=== PATIENT | female | born 1980 | race Caucasian/White ===

== ENCOUNTER 2018-12-10 05:27 | Day surgery (SDC) | payer OTHER ==
[2018-12-08 12:43] VITALS: BMI 37.8
[2018-12-10] VITALS (14 sets, daily range): BP systolic 103–138; BP diastolic 62–78; PULSE 80–88; RESP 17–26; Ht 149.9 cm; Wt 90.2 kg
[~2018-12-10] VITALS: Ht 149.9 cm; Wt 90.2 kg
[~2018-12-10 05:27] MED LIST: CETI10CA PO; OMEP20CA16 PO; ONDA4TAB8 PO; POLYMYXIN/BACITRACIN 1L IRRIG IRR ONE; POTA10TA6 PO; RANI75TA13 PO
[2018-12-10] MEDS ORDERED: CEFAZOLIN 2 GM/50 ML (PMX) 50 ML IVPB SCH (06:30)
[2018-12-10] MEDS ORDERED: SOD CHLORIDE 0.9% 1,000 ML IV SCH (06:30)
--- NOTE | 2018-12-10 07:14 | PREAC ---
Date/Time of Note Date/Time of Note DATE: 12/10/18 TIME: 07:12 Anesthesia Eval and Record Evaluation Time Pre-Procedure Interview DATE: 12/10/18 TIME: 07:12 Age 38 Sex female NPO: 8 hrs Preoperative diagnosis incarcerated recurrent incisional hernia Planned procedure lap incarcerated recurrent incisional hernia repair with mesh Past Medical History Past Medical History: Includes GI: GERD, Morbid obesity Surgery & Anesthesia Issues No known issue Meds Anticoagulation: No Beta Dexter within 24 hr: No Reason Beta Dexter not given: Pt. not on B-Dexter Reported Medications Ondansetron Hcl* (Zofran*) 4 Mg Tablet, 4 MG PO Q6H PRN for NAUSEA AND OR VOMITING, TAB 12/08/18 Potassium Citrate* (Urocit-K*) 10 Meq Tablet.sa, 10 MEQ PO BID, TAB.SA 12/08/18 Omeprazole* (Omeprazole*) 20 Mg Capsule.dr, 20 MG PO DAILY, #30 CAP 12/08/18 Cetirizine Hcl* (Zyrtec*) 10 Mg Capsule, 10 MG PO BID, TAB 12/08/18 Ranitidine Hcl* (Zantac*) 75 Mg Tablet, 150 MG PO PRN for GASTROINTESTINAL UPSET 12/23/13 Discontinued Scripts Docusate Sodium* (Colace*) 100 Mg Capsule, 100 MG PO DAILY, #30 CAP Prov:HECTOR PULLIAM NP 09/02/15 Phenylephrine HCl/[place] Butter* (Preparation H* Suppository) 1 Each Supp.rect, 1 EACH ID TID PRN for bowel movement, #30 SUPP.RECT Prov:HECTOR PULLIAM NP 09/02/15 Psyllium Seed* (Metamucil* Powder) 1,040 Gm Powder, 10 GM PO DAILY, #1 EA Prov:HECTOR PULLIAM LUMBER SORTER 09/02/15 Current Medications Cefazolin Sodium/ Dextrose 50 ml @ 100 mls/hr PREOP IVPB ; Start 12/10/18 at 06:30; Stop 12/10/18 at 20:00 Sodium Chloride 1,000 ml @ 75 mls/hr [id number] IV ; Start 12/10/18 at 06:30; Stop 12/10/18 at 20:00 Meds reviewed: Yes Allergies Coded Allergies: moxifloxacin (Verified Allergy, Severe, 12/10/18) DIFFICULTY BREATHING latex (Verified Allergy, Intermediate, RASH/ REDNESS, 12/10/18) Allergies Reviewed: Yes Labs/Studies Labs Reviewed: Reviewed by anesthesiologist Result Diagram: 12/10/1815 12/10/18 0615 Laboratory Tests 12/10/18 06:15 test: Negative Studies: ECG (nl) Pre-procedure Exam Last vitals Vital Signs Date Temp Pulse Resp B/P (MAP) Pulse Ox O2 O2 Flow FiO2 Time Delivery Rate 12/10/18 96.8 80 18 119/73 95 Room Air 06:00 (88) Airway: Adequate mouth opening, Adequate thyromental dist Mallampati: Mallampati III Teeth: Normal Lung: Normal Heart: Normal ASA Physical Status ASA physical status: 3 Emergency: None Planned Anesthetic General/MAC: ETT Nerve block: TAP (bilateral) Planned Pain Management Single shot nerve block, Parenteral pain med Pre-operative Attestations Prior to commencing anesthesia and surgery, the patient was re-evaluated, there was verification of: *The patient's identity *The results of appropriate recent lab work and preoperative vital signs *The above evaluation not changing prior to induction *Anesthetic plan, risk benefits, alternative and complications discussed with patient/family; questions answered; patient/family understands, accepts and wishes to proceed. Jose Bautista M.D. Dec 10, 2018 07:14
[2018-12-10] MEDS ORDERED: IPRATROPIUM (NEB) 0.5 MG/2.5 ML AMP HHN PRN (07:30)
[2018-12-10] MEDS ORDERED: MEPERIDINE 25 MG INJ IV PRN (07:30)
[2018-12-10] MEDS ORDERED: MIDAZOLAM 1 MG/ML 2 ML INJ IV PRN (07:30)
[2018-12-10] MEDS ORDERED: ALBUTEROL 0.083% (NEB) 2.5 MG/3 ML AMP HHN PRN (07:30)
[2018-12-10] MEDS ORDERED: ONDANSETRON 4 MG INJ IV PRN (07:30)
[2018-12-10] MEDS ORDERED: LABETALOL HCL 20MG INJ IV PRN (07:30)
[2018-12-10] MEDS ORDERED: EPHEDrine SULFATE 50 MG/5 ML SYG IV PRN (07:30)
[2018-12-10] MEDS ORDERED: DIPHENHYDRAMINE 50 MG INJ IV PRN (07:30)
[2018-12-10] MEDS ORDERED: hydrALAzine 20 MG INJ IV PRN (07:30)
[2018-12-10] MEDS ORDERED: OXYCODONE/ACETAMINOPHEN (5/325) TAB PO PRN ×2 (07:30)
[2018-12-10] MEDS ORDERED: FENTAnyl 50 MCG/ML VIAL IV PRN ×3 (07:30)
[2018-12-10] MEDS ORDERED: HYDROmorphONE 1 MG/5 ML IV SYRINGE IV PRN ×2 (07:30)
[2018-12-10] MEDS ORDERED: TRIMETHOBENZAMIDE 100 MG/ML VIAL IM PRN (07:30)
[2018-12-10] MEDS ORDERED: PROPOFOL 20 ML ONE (07:33)
[2018-12-10] MEDS ORDERED: ROCURONIUM 50 MG INJ ONE (07:33)
[2018-12-10] MEDS ORDERED: NEOSTIGMINE 3 MG/3 ML SYRINGE ONE (07:33)
[2018-12-10] MEDS ORDERED: GLYCOPYRROLATE 0.4 MG INJ ONE (07:33)
[2018-12-10] MEDS ORDERED: CEFAZOLIN 1 GM INJ ONE (07:33)
[2018-12-10] MEDS ORDERED: FENTAnyl 50 MCG/ML VIAL ONE (07:35)
[2018-12-10] MEDS ORDERED: ONDANSETRON 4 MG INJ ONE (07:35)
[2018-12-10] MEDS ORDERED: MIDAZOLAM 1 MG/ML 2 ML INJ ONE (07:35)
[2018-12-10] MEDS ORDERED: DEXAMETHASONE 4 MG/ML 5 ML INJ ONE (07:36)
[2018-12-10] MEDS ORDERED: ROPIVACAINE 0.5 % 30 ML VIAL ONE (08:06)
[2018-12-10] MEDS ORDERED: SUGAMMADEX SODIUM 200 MG/2 ML VIAL IV ONE (08:52)
--- NOTE | 2018-12-10 09:18 | OPR ---
Date/Time of Note Date/Time of Note DATE: 12/10/18 TIME: 09:11 Operative Report Procedure Date: Dec 10, 2018 Preoperative Diagnosis recurrent incarcerated incisional hernia Postoperative Diagnosis same Operation/Procedure Performed 1. laparoscopic recurrent incarcerated incisional hernia repair 2. implantation of bard soft 15 x 15 cm mesh 3. laparoscopic lysis of adhesions Surgeon see signature line Administrative Services Assistant none Anesthesia Type: general Estimated Blood Loss: 0 - 10 ml's Transfusion none Specimen none Grafts/Implants none Complications none Pt Condition Post Procedure: stable Indications This is a 38-year-old female with symptomatic recurrent incarcerated incisional hernia. She has had surgery before. She required surgical repair. Risks alternatives benefits and percent were discussed the patient. Patient expressed understanding consents to the operation. Procedure Description Patient is taken to the OR and prepped and draped in usual sterile fashion. Surgical time was performed. IV antibiotics were given. Left upper quadrant 5 mm transverse incisions with a 15 blade. Using a 5 mm optical trocar optical entry is performed. Pneumoperitoneum is established. Left flank 12 mm optical trochars placed under direct position. Left lower quadrant 5 mm optical trocha rs placed under direct visualization. Upon initial inspection there is incarcerated hernia contents to the mid epigastric region from the prior surgical site. It appears that this had been repaired primarily without mesh. Laparoscopic lysis of adhesions was performed and the incarcerated contents are manually reduced. The fascial edges were identified. The fascial edges were t hen primarily closed using #1 Vicryl using Endo Close and laparoscopic techniques. After primary closure of the defect underlay mesh with Bard soft mesh is secured in place with secure strap. Approximately 4-5 cm of coverage in all directions were ensured. Good hemostasis established. All ports removed under direct visualization. Skin was closed and skin rea. A tap block was provided by the anesthesiologist the beginning of the case. Dry dressings were applied. Ainsley GRANT Dec 10, 2018 09:18
[2018-12-10] MEDS: HYDROmorphONE 1 MG/5 ML IV SYRINGE IV PRN ×2 (09:20→09:40)
[2018-12-10] MEDS ORDERED: HYDROCODONE/APAP (5/325) TAB PO ONE (09:30)
--- NOTE | 2018-12-10 09:57 | PAC ---
Date/Time of Note Date/Time of Note DATE: 12/10/18 TIME: 09:57 Post-Anesthesia Notes Post-Anesthesia Note Last documented vital signs Vital Signs Date Temp Pulse Resp B/P (MAP) Pulse Ox O2 O2 Flow FiO2 Time Delivery Rate 12/10/18 96.8 80 18 119/73 95 Room Air 06:00 (88) Activity: WNL Respiratory function: WNL Cardiovascular function: WNL Mental status: Baseline Pain reasonably controlled: Yes Hydration appropriate: Yes Nausea/Vomiting absent: Yes Jose Bautista M.D. Dec 10, 2018 09:57
== END 2018-12-10 11:00 | disposition home or self-care (01) ==
LOC: SDS 05:27
PROVIDERS: ATTEND Surgery
DX: K43.0 Incisional hernia with obstruction, without gangrene (principal)
CPT/HCPCS: 49657; 71045; 80053; 85025; 85610; 85730; 93005; J0690; J1100; J1170; J2175; J2250; J2405; J2795; J3010; Z7512; Z7610; J2710

== ENCOUNTER 2019-01-21 11:27 | Day surgery (SDC) | payer OTHER ==
[~2019-01-21] VITALS: Ht 149.9 cm; Wt 88.4 kg
[~2019-01-21 11:27] MED LIST changes: -POLYMYXIN/BACITRACIN 1L IRRIG IRR ONE
[2019-01-21 12:19] VITALS: Ht 149.9 cm; Wt 88.4 kg
[2019-01-21] MEDS ORDERED: IBUPROFEN (12:23)
[2019-01-21 12:34] VITALS: BP 114/68; PULSE 81; RESP 18
--- NOTE | 2019-01-21 12:58 | PREAC ---
Date/Time of Note Date/Time of Note DATE: 01/21/19 TIME: 12:57 Anesthesia Eval and Record Evaluation Time Pre-Procedure Interview DATE: 01/21/19 TIME: 12:57 Age 38 Sex female NPO: 8 hrs Preoperative diagnosis abd pain Planned procedure EGD Past Medical History Past Medical History: Includes Pulm: Asthma Surgery & Anesthesia Issues No known issue Meds Anticoagulation: No Beta Dexter within 24 hr: No Reason Beta Dexter not given: Pt. not on B-Dexter Reported Medications [Ibuprofen] No Conflict Check 01/21/19 Omeprazole* (Omeprazole*) 20 Mg Capsule.dr, 20 MG PO DAILY, #30 CAP 12/08/18 Ranitidine Hcl* (Zantac*) 75 Mg Tablet, 150 MG PO PRN for GASTROINTESTINAL UPSET 12/23/13 Discontinued Reported Medications Ondansetron Hcl* (Zofran*) 4 Mg Tablet, 4 MG PO Q6H PRN for NAUSEA AND OR VOMITING, TAB 12/08/18 Potassium Citrate* (Urocit-K*) 10 Meq Tablet.sa, 10 MEQ PO BID, TAB.SA 12/08/18 Cetirizine Hcl* (Zyrtec*) 10 Mg Capsule, 10 MG PO BID, TAB 12/08/18 Meds reviewed: Yes Allergies Coded Allergies: moxifloxacin (Verified Allergy, Severe, 12/10/18) DIFFICULTY BREATHING latex (Verified Allergy, Intermediate, RASH/ REDNESS, 12/10/18) Allergies Reviewed: Yes Labs/Studies Labs Reviewed: Reviewed by anesthesiologist test: Negative Studies: ECG (n/a), CXR (n/a) Pre-procedure Exam Last vitals Vital Signs Date Temp Pulse Resp B/P (MAP) Pulse Ox O2 O2 Flow FiO2 Time Delivery Rate 01/21/19 98.0 81 18 114/68 97 Room Air 12:34 (83) Airway: Adequate mouth opening Mallampati: Mallampati I Teeth: Normal Lung: Normal Heart: Normal ASA Physical Status ASA physical status: 2 Emergency: None Planned Anesthetic General/MAC: MAC Planned Pain Management Parenteral pain med Pre-operative Attestations Prior to commencing anesthesia and surgery, the patient was re-evaluated, there was verification of: *The patient's identity *The results of appropriate recent lab work and preoperative vital signs *The above evaluation not changing prior to induction *Anesthetic plan, risk benefits, alternative and complications discussed with patient/family; questions answered; patient/family understands, accepts and wishes to proceed. JEAN-PAUL TORRES MD January 21, 2019 12:58
[2019-01-21] MEDS ORDERED: PROPOFOL 20 ML ONE (12:59)
[2019-01-21] MEDS ORDERED: FENTAnyl 50 MCG/ML VIAL ONE (12:59)
[2019-01-21] MEDS ORDERED: ONDANSETRON 4 MG INJ IV PRN (13:00)
[2019-01-21] MEDS ORDERED: FENTAnyl 50 MCG/ML VIAL IV PRN (13:00)
[2019-01-21] MEDS ORDERED: ONDANSETRON 4 MG INJ ONE (13:15)
--- NOTE | 2019-01-22 06:14 | CONS ---
DATE OF ADMISSION: 01/21/2019 DATE OF CONSULTATION: PATIENT NAME: SERG PALMER TYPE OF CONSULTATION: PREOPERATIVE GASTROENTEROLOGY Dear Dr. Galvan: I thank you very much for this kind referral. HISTORY OF PRESENT ILLNESS: Ms. Samra Palmer is a 38-year-old female patient who has been referr ed to me for further evaluation of upper abdominal pain and chronic heartburn not completely respondi ng to therapy with omeprazole and Zantac. At times, the pain is severe. [facility] done and no abnormality was detected. She is not taking an y nonsteroidal anti-inflammatory agents. Appetite is good, and there is no weight loss. She is stat us post cholecystectomy. No history of liver disease. She denies any change in the bowel habit or r ectal bleeding. She is not a hypertensive or diabetic. No heart disease, lung problem or kidney dis ease. She is status post appendectomy. She recently had surgery for umbilical hernia. SOCIAL HISTORY: Nonsmoker. No alcohol abuse. FAMILY HISTORY: No family history of gastrointestinal tract neoplasm. ALLERGIES: NO DRUG ALLERGIES. MEDICATIONS: 1. Omeprazole. 2. Zantac. PHYSICAL EXAMINATION: VITAL SIGNS: She is 4 feet 11 inches tall and weighs 187 pounds. HEART: Normal heart sounds. LUNGS: Clear. ABDOMEN: Soft, no masses. Normal bowel sounds. NEUROLOGIC: Normal neurological exam. IMPRESSION: 1. Upper abdominal pain and chronic heartburn, not responding to therapy with omeprazole and Zantac. 2. Obesity. 3. Status post cholecystectomy and appendectomy. 4. Status post surgery for umbilical hernia recently. PLAN: 1. Endoscopy for further evaluation. 2. Because of the obesity with a short thick neck, she needs monitored anesthesia care. The procedure and possible complications are well explained to the patient. The patient understands and consents to the procedure. I thank you once again. With warmest personal regards, Dictated By: SHITAL ARANGO/VIRY Conf#: [id number] DID#: [id number]
--- NOTE | 2019-01-22 09:13 | PAC ---
Date/Time of Note Date/Time of Note DATE: 01/22/19 TIME: 09:12 Post-Anesthesia Notes Post-Anesthesia Note Last documented vital signs Vital Signs Date Temp Pulse Resp B/P (MAP) Pulse Ox O2 O2 Flow FiO2 Time Delivery Rate 01/21/19 98.0 81 18 114/68 97 Room Air 12:34 (83) Activity: WNL Respiratory function: WNL Cardiovascular function: WNL Mental status: Baseline Pain reasonably controlled: Yes Hydration appropriate: Yes Nausea/Vomiting absent: No JEAN-PAUL TORRES MD January 22, 2019 09:13
== END 2019-01-21 13:55 | disposition home or self-care (01) ==
LOC: GIL 11:27
PROVIDERS: ATTEND Internal Medicine Gastroenterology
DX: K44.9 Diaphragmatic hernia without obstruction or gangrene (principal); K29.50 Unspecified chronic gastritis without bleeding; J45.909 Unspecified asthma, uncomplicated
CPT/HCPCS: 43239; 84703; J2405; J3010; Z7610; 88305; 88312